=== PATIENT | female | born 1930 | race Caucasian/White ===

== ENCOUNTER 2021-03-14 17:05 | Emergency (ER) | payer MEDICARE ==
[~2021-03-14] VITALS: Ht 154.9 cm; Wt 72.7 kg
[2021-03-14 17:08] VITALS: BP 149/77
[2021-03-14] MEDS ORDERED: LIDOcaine 1% W/epiNEPHrine 1:200,000 10ml vial IJ ONE (20:45)
--- NOTE | 2021-03-14 20:53 | NUR ---
physical science technician currently irrigating wound. PA also at bedside.
== END 2021-03-14 21:44 | disposition home or self-care (01) ==
LOC: ER 17:06
DX: S81.812A Laceration without foreign body, left lower leg, initial encounter (principal); I10 Essential (primary) hypertension; W26.8XXA Contact with other sharp object(s), not elsewhere classified, initial encounter; Y93.89 Activity, other specified; Y92.89 Other specified places as the place of occurrence of the external cause; Y99.8 Other external cause status
CPT/HCPCS: 12002; 99282